=== PATIENT | male | born 1960 | race Caucasian/White ===

== ENCOUNTER 2016-12-18 17:19 | Emergency (ER) | payer BC ==
[~2016-12-18] VITALS: Ht 177.8 cm; Wt 88.6 kg
[2016-12-18 17:27] VITALS: TEMP 36.8
[2016-12-18] MEDS ORDERED: CLR10 PO (17:48)
[2016-12-18] MEDS ORDERED: IBUP-1459 PO (17:48)
[2016-12-18] MEDS ORDERED: ENOXAPARIN 1.5 MG/KG SQ STA (17:57)
[2016-12-18] MEDS ORDERED: LOVENOX TEACHING KIT STA (17:57)
[2016-12-18] MEDS ORDERED: WARFARIN SOD 5 MG TAB PO ONE (18:00)
[2016-12-18 18:06] VITALS: Ht 177.8 cm; Wt 88.6 kg
[2016-12-18] MEDS ORDERED: ENOXAPARIN 30 MG/0.3 ML SYR ONE (18:11)
[2016-12-18] MEDS ORDERED: ENOXAPARIN 100 MG/1ML SYR ONE (18:11)
[2016-12-18] MEDS ORDERED: PATIENT'S HEIGHT AND/OR WEIGHT NEEDED SCH (18:15)
[2016-12-18 18:26] LABS: BASO % 0.7 %; BASO ABS # 0.06 K/uL (0-0.2); COMPLETE YES; EOS % 2.6 %; HEMATOCRIT 45.6 % (42-52); IG% 0.2 %; LYMPH % 33.3 %; LYMPH ABS # 2.83 K/uL (1.2-3.4); MEAN CORPUSCULAR HEMOGLOBIN 31.1 pg (25-34); MEAN CORPUSCULAR HGB CONC 33.1 g/dl (32-36); MEAN PLATELET VOLUME 9.1 fL (7.4-10.4); MONO % 8.2 %; PLATELET COUNT 312 K/uL (130-400); RED BLOOD COUNT 4.85 M/uL (4.7-6.1); WHITE BLOOD COUNT 8.51 K/uL (4.8-10.8)
[2016-12-18 18:39] LABS: PROTHROMBIN TIME (PATIENT) 10.2 SECONDS (9.0-12.0)
[2016-12-18 18:47] LABS: BUN/CREATININE RATIO 21.1 (10-20); CALCIUM 9.1 mg/dl (8.5-10.1); CREATININE 0.88 mg/dl (0.60-1.40); POTASSIUM 4.1 mmol/L (3.5-5.1)
[2016-12-18 18:50] LABS: ALB/GLOB RATIO 0.9 (0.9-2)
[2016-12-18] MEDS ORDERED: ENOX120I SQ (19:02)
[2016-12-18] MEDS ORDERED: WARF5TAB90 PO (19:02)
[2016-12-18 19:44] VITALS: BP 135/82; PULSE 79; O2SAT 96
--- NOTE | 2016-12-19 00:18 | EMERGENCY ROOM VISIT NOTE ---
History First contact with patient: 17:33 Chief Complaint: PAIN (GENERALIZED) Stated Complaint: PAIN IN LEFT CALF, PT TO GET ULTRASOUND History of Present Illness The patient is a 56 year old male who presents to the Emergency Room with complaints of left leg pain and swelling for the past week that gotten progressively worse. Patient has been traveling recently with driving. Patient denies chest pain, dyspnea, fever, chills, abdominal pain, numbness, tingling, injury to the area. He had an ultrasound done outpatient and was sent in for treatment for DVT. Review of Systems See HPI for pertinent positives & negatives. A total of 10 systems reviewed and were otherwise negative. Past Medical/Surgical History None Social History Smoking Status: Never Smoker Drug Use: none Marital Status: in relationship Housing Status: lives with family Occupation Status: employed Current/Historical Medications Scheduled Enoxaparin (Lovenox), 133 MG SQ DAILY Warfarin Sodium (Coumadin), 5 MG PO DAILY Scheduled PRN Ibuprofen (Motrin), 400 MG PO BID PRN for Pain Loratadine (Claritin), 10 MG PO DAILY PRN for SINUSES Allergies Coded Allergies: Erythromycin (Unverified Adverse Reaction, Intermediate, HEADACHES, ) Physical Exam Vital Signs Date Time Temp Pulse Resp B/P Pulse Ox O2 Delivery O2 Flow Rate FiO2 12/18/16 19:44 79 19 135/82 96 Room Air 12/18/16 18:20 79 12/18/16 18:06 Room Air 12/18/16 17:27 36.8 81 16 137/85 95 Room Air Pain Rating (0-10): 0 Physical Exam VITALS: Vitals are noted on the nurse's note and reviewed by myself. Vital signs stable. GENERAL: Pleasant male, in no acute distress, nondiaphoretic, well-developed well-nourished. SKIN: Capillary reflex less than 2 seconds. HEENT: Normocephalic. PERRLA. EOMI. Nares patent. Mucous membranes moist. Neck is supple without nuchal rigidity. HEART: Regular rate and rhythm without murmurs gallops or rubs. LUNGS: Clear to auscultation bilaterally without wheezes, rales or rhonchi. No retractions or accessory muscle use. ABDOMEN: Positive bowel sounds x 4. Normal tympanic percussion. Soft, nontender, without masses or organomegaly. Godoy sign negative. No guarding or rebound tenderness. MUSCULOSKELETAL: No gross musculoskeletal defects. Left foot pedal edema. Left calf calf tenderness. NEURO: Patient was alert and oriented to person place and time. Normal sensation to light and sharp touch. No focal neurological deficits. Medical Decision & Procedures Laboratory Results 12/18/16 18:00 Red Blood Count 4.85, Mean Corpuscular Volume 94.0, Mean Corpuscular Hemoglobin 31.1, Mean Corpuscular Hemoglobin Concent 33.1, Mean Platelet Volume 9.1, Neutrophils (%) (Auto) 55.0, Lymphocytes (%) (Auto) 33.3, Monocytes (%) (Auto) 8.2, Eosinophils (%) (Auto) 2.6, Basophils (%) (Auto) 0.7, Neutrophils # (Auto) 4.68, Lymphocytes # (Auto) 2.83, Monocytes # (Auto) 0.70, Eosinophils # (Auto) 0.22, Basophils # (Auto) 0.06 12/18/16 18:00 Test 12/18/16 18:00 White Blood Count 8.51 K/uL (4.8-10.8) Red Blood Count 4.85 M/uL (4.7-6.1) Hemoglobin 15.1 g/dL (14.0-18.0) Hematocrit 45.6 % (42-52) Mean Corpuscular Volume 94.0 fL (80-100) Mean Corpuscular Hemoglobin 31.1 pg (25-34) Mean Corpuscular Hemoglobin Concent 33.1 g/dl (32-36) Platelet Count 312 K/uL (130-400) Mean Platelet Volume 9.1 fL (7.4-10.4) Neutrophils (%) (Auto) 55.0 % Lymphocytes (%) (Auto) 33.3 % Monocytes (%) (Auto) 8.2 % Eosinophils (%) (Auto) 2.6 % Basophils (%) (Auto) 0.7 % Neutrophils # (Auto) 4.68 K/uL (1.4-6.5) Lymphocytes # (Auto) 2.83 K/uL (1.2-3.4) Monocytes # (Auto) 0.70 K/uL (0.11-0.59) Eosinophils # (Auto) 0.22 K/uL (0-0.5) Basophils # (Auto) 0.06 K/uL (0-0.2) RDW Standard Deviation 45.5 fL (36.4-46.3) RDW Coefficient of Variation 13.1 % (11.5-14.5) Immature Granulocyte % (Auto) 0.2 % Immature Granulocyte # (Auto) 0.02 K/uL (0.00-0.02) Prothrombin Time 10.2 SECONDS (9.0-12.0) Prothromb Time International Ratio 1.0 (0.9-1.1) Activated Partial Thromboplast Time 25.1 SECONDS (21.0-31.0) Partial Thromboplastin Ratio 1.0 Anion Gap 8.0 mmol/L (3-11) Est Creatinine Clear Calc Drug Dose 106.3 ml/min Estimated GFR () 112.1 Estimated GFR (Non- 96.7 BUN/Creatinine Ratio 21.1 (10-20) Calcium Level 9.1 mg/dl (8.5-10.1) Total Bilirubin 0.4 mg/dl (0.2-1) Aspartate Amino Transf (AST/SGOT) 34 U/L (15-37) Alanine Aminotransferase (ALT/SGPT) 72 U/L (12-78) Alkaline Phosphatase 108 U/L (45-117) Total Protein 8.2 gm/dl (6.4-8.2) Albumin 3.9 gm/dl (3.4-5.0) Globulin 4.3 gm/dl (2.5-4.0) Albumin/Globulin Ratio 0.9 (0.9-2) Medications Administered Medications (Trade) Dose Ordered Sig/Melani Route Start Time Stop Time Status Last Admin Dose Admin Warfarin Sodium (Coumadin Tab) 5 mg NOW ONCE PO 12/18/16 18:00 12/18/16 18:01 DC 12/18/16 18:13 5 MG Miscellaneous (Lovenox Teaching Kit) 1 ea NOW STAT N/A 12/18/16 17:57 12/18/16 18:01 DC 12/18/16 19:35 1 EA Miscellaneous Information (Patient'S Height And/Or Weight Needed) 1 ea Q2H N/A 12/18/16 18:15 12/18/16 20:13 DC 12/18/16 18:08 1 EA Enoxaparin Sodium (Lovenox Inj) 30 mg STK-MED ONCE .ROUTE 12/18/16 18:11 12/18/16 18:12 DC 12/18/16 18:13 30 MG Enoxaparin Sodium (Lovenox Inj) 100 mg STK-MED ONCE .ROUTE 12/18/16 18:11 12/18/16 18:12 DC 12/18/16 18:14 100 MG ED Course Prior records reviewed and summarized above. Triage Nursing notes reviewed. Additional history obtained from the family. The patient's history was concerning for swelling and pain in the leg. Differential diagnosis: Etiologies such as DVT, musculoskeletal, infection, joint effusion, trauma, lymphedema, idiopathic, CHF, as well as others were entertained.. Physical examination: The physical examination revealed no signs of infection. Neurovascularly intact. ER treatment provided: Lovenox, Coumadin On reassessment the patient felt better. Diagnostics interpreted by me: The labs revealed stable H&H Imaging studies: Ultrasound was reviewed from earlier concerning for DVT This appears to be consistent with DVT. Patient was started on anticoagulation. No history GI bleeding. Stable H&H. He was advised to follow -up family care in a few days for INR check or here in the ER sooner for chest pain, difficulty breathing, bleeding, worsening signs or symptoms or as needed. By the evaluation outlined above emergent etiologies such as septic joint, trauma, infection, CHF, as well as others were deemed relatively unlikely. The pt informed about the findings as listed above. All questions were answered and pleased with the treatment. Return instructions were outlined and the patient was discharged in stable condition. Outpatient prescription management: Lovenox, Coumadin Referral: The patient was referred back to their primary care physician for follow-up in 2 to 3 days for a recheck of the current condition. Case reviewed with my Attending. Medical Decision As above Impression Primary Impression: Left leg DVT Departure Information Dispostion Home / Self-Care Condition GOOD Prescriptions Enoxaparin (Lovenox) 120 Mg/0.8 Ml Inj 133 MG SQ DAILY for 7 Days, #7 SYR Prov: Siria Zaragoza PA-C 12/18/16 Warfarin Sodium (COUMADIN) 5 Mg Tab 5 MG PO DAILY, #14 TAB Prov: Siria Zaragoza PA-C 12/18/16 Forms WORK / SCHOOL INSTRUCTIONS, HOME CARE DOCUMENTATION FORM, IMPORTANT VISIT INFORMATION Patient Instructions DVT, My [facility] Additional Instructions Lovenox: One-shot daily until your family care doctor tells that she stopped taking it. Coumadin 5 m tablet daily until changed by the family care doctor. Do not take NSAIDs while on blood thinners. Acetaminophen(Tylenol) may be used for fever or pain. Use 1000mg every six hours as needed. Avoid using more than 3000mg in a 24 hour period. Rest and drink plenty of fluids as tolerated. Continue current medications. Avoid strenuous activities and anything that worsens your pain. Resume normal activities once your symptoms resolve. Return to the ER immediately for chest pain, abdominal pain, vomiting, fevers, chest pains, difficulty breathing, worsening of your condition, or as needed. Follow up with your primary physician in 2-3 days for a recheck of your current condition. Problem Qualifiers Primary Impression: Left leg DVT Affected thrombotic vein of extremity: tibial Chronicity: acute Qualified Codes: I82.442 - Acute embolism and thrombosis of left tibial vein
== END 2016-12-18 19:51 | disposition home or self-care (01) ==
LOC: C.EDB 17:21 → C.EDC 19:51
DX: I82.4Z2 Acute embolism and thrombosis of unspecified deep veins of left distal lower extremity (principal); Z86.718 Personal history of other venous thrombosis and embolism; Z79.01 Long term (current) use of anticoagulants; Z79.899 Other long term (current) drug therapy; Z88.3 Allergy status to other anti-infective agents

== ENCOUNTER → 2016-12-18 | Outpatient (CLI) | payer BC ==
[~2016-12-18] MED LIST: CLR10 PO; ENOX120I SQ; IBUP-1459 PO; WARF5TAB90 PO
--- NOTE | 2016-12-18 16:51 | DIAGNOSTIC IMAGING REPORT ---
LEFT LOWER EXTREMITY VENOUS DOPPLER HISTORY: PAIN OF LEFT CALF, EDEMA COMPARISON STUDY: None. FINDINGS: There is thrombus identified within one of 2 distal posterior tibial veins. The remaining deep venous structures are patent. There is also superficial thrombus identified within the left greater saphenous vein at the level of the calf. IMPRESSION: Superficial and deep vein thrombosis within the left calf as described above. Electronically signed by: Gary Pimentel M.D. 12/18/2016 4:50 PM Dictated Date/Time: 12/18/2016 4:49 PM
== END | disposition home or self-care (01) ==
LOC: C.ULTR 15:48
PROVIDERS: ATTEND Family Medicine
DX: I82.402 Acute embolism and thrombosis of unspecified deep veins of left lower extremity (principal); I82.812 Embolism and thrombosis of superficial veins of left lower extremity